=== PATIENT | male | born 1990 | race Asian ===

== ENCOUNTER 2019-05-31 07:13 | Emergency (ER) | payer OTHER ==
[2019-05-31] MEDS ORDERED: IBUPROFEN PO ONE (07:45)
[2019-05-31 07:48] VITALS: BP 157/99
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
== END 2019-05-31 08:52 | disposition home or self-care (01) ==
LOC: ED 07:13
DX: S46.912A Strain of unspecified muscle, fascia and tendon at shoulder and upper arm level, left arm, initial encounter (principal); R51 Headache; Z79.899 Other long term (current) drug therapy; V49.49XA Driver injured in collision with other motor vehicles in traffic accident, initial encounter; Y93.89 Activity, other specified; Y92.410 Unspecified street and highway as the place of occurrence of the external cause; Y99.8 Other external cause status